=== PATIENT | male | born 1980 ===

== ENCOUNTER 2017-02-11 07:21 | Emergency (ER) | payer OTHER ==
[2017-02-11 07:30] VITALS: BP 148/101; PULSE 106; RESP 18; TEMP 98.2; O2SAT 95
--- NOTE | 2017-02-11 07:44 | C.PDOC ---
History Of Present Illness 37-year-old male, presents to the emergency department requesting substance abuse. Patient states he has a history of Heroin abuse. States he "sniffs" about 20 bags a day x10 years. Last use was three hours ago. Denies any other associated symptoms. No HI/SI. Time Seen by Provider: 02/11/17 07:40 Chief Complaint (Nursing): Substance Abuse History Per: Patient History/Exam Limitations: no limitations Past Medical History Reviewed: Historical Data, Nursing Documentation, Vital Signs Vital Signs: Last Vital Signs Temp 98.2 F 02/11/17 07:25 Pulse 106 H 02/11/17 07:25 Resp 18 02/11/17 07:25 BP 148/101 H 02/11/17 07:25 Pulse Ox 95 02/11/17 10:01 Family History: States: Unknown Family Hx - Social History Hx Tobacco Use: No Hx Alcohol Use: No Hx Substance Use: Yes - Immunization History Hx Tetanus Toxoid Vaccination: No Hx Influenza Vaccination: No Hx Pneumococcal Vaccination: No Review Of Systems Except As Marked, All Systems Reviewed And Found Negative. Constitutional: Negative for: Fever, Chills Cardiovascular: Negative for: Chest Pain Gastrointestinal: Negative for: Nausea, Vomiting Skin: Negative for: Rash Neurological: Negative for: Weakness, Numbness Physical Exam - Physical Exam Appears: Non-toxic, No Acute Distress Skin: Warm, Dry, No Rash Head: Atraumatic, Normacephalic Eye(s): bilateral: Normal Inspection, PERRL, EOMI Nose: Normal Oral Mucosa: Moist Lips: Normal Appearing Neck: Normal ROM Respiratory: No Accessory Muscle Use Extremity: Normal ROM Neurological/Psych: Oriented x3, Normal Speech ED Course And Treatment O2 Sat by Pulse Oximetry: 95 Progress Note: There are no detox beds available at this time. Patient will be discharged w/ instructions to follow-up w/ detox co-ordinator, and given information about the pre screening process. All questions answered. - Physician Consult Information Time Consulting Physician Contacted: 07:41 Outcome Of Conversation: d/w crisis no detox beds avail Disposition Counseled Patient/Family Regarding: Diagnosis, Need For Followup - Disposition Referrals: [facility] [Outside] [facility] [Outside] [facility] [Provider Group] [facility]RE[facility] [Other] Disposition: HOME/ ROUTINE Disposition Time: 07:40 Condition: GOOD Instructions: Polysubstance Abuse (ED) - Clinical Impression Clinical Impression: Polysubstance abuse - Scribe Statement The provider has reviewed the documentation as recorded by the Florian Felipe Provider Attestation: All medical record entries made by the Florian were at my direction and personally dictated by me. I have reviewed the chart and agree that the record accurately reflects my personal performance of the history, physical exam, medical decision making, and the department course for this patient. I have also personally directed, reviewed, and agree with the discharge instructions and disposition.
== END 2017-02-11 08:01 | disposition home or self-care (01) ==
LOC: C.ER 07:21
DX: F19.10 Other psychoactive substance abuse, uncomplicated (principal)

== ENCOUNTER 2017-05-30 12:47 | Emergency (ER) | payer OTHER ==
[2017-05-30] MEDS ORDERED: Sodium Chloride 0.9% 1,000 ML IV ONE (13:16)
[2017-05-30 13:35] LABS: BASO # 0.1 K/uL (0.0-0.2); BASO % 0.5 % (0.0-2.0); EOS # 0.1 K/uL (0.0-0.7); EOS % 1.5 % (0.0-4.0); HEMATOCRIT 40.1 % (35.0-51.0); LYMPH # 2.8 K/uL (1.0-4.3); LYMPH % 28.2 % (20.0-40.0); MEAN CELL VOLUME 83.6 fL (80.0-94.0); MEAN CORPUSCULAR HEMOGLOBIN 27.9 pg (27.0-31.0); MEAN CORPUSCULAR HGB CONC 33.4 g/dL (33.0-37.0); MEAN PLATELET VOLUME 6.5 fL (7.2-11.7); MONO # 0.5 K/uL (0.0-0.8); RED CELL DISTRIBUTION WIDTH 14.2 % (11.5-14.5)
[2017-05-30] MEDS ORDERED: Sodium Chloride 0.9% 1,000 ML ONE (13:38)
[2017-05-30 13:43] LABS: CHLORIDE 96 mmol/L (98-107); POTASSIUM 3.2 mmol/L (3.6-5.2); SODIUM 139 mmol/L (132-148)
[2017-05-30 13:45] LABS: GFR AFRICAN-AMERICAN > 60
[2017-05-30 13:46] LABS: ALB/GLOB RATIO 1.4 (1.0-2.1); ALKALINE PHOSPHATASE 70 U/L (38-126); ALT/SGPT 37 U/L (21-72); AST/SGOT 19 U/L (17-59); BILIRUBIN,TOTAL 0.8 mg/dL (0.2-1.3); BLOOD UREA NITROGEN 12 mg/dL (9-20); CALCIUM 8.8 mg/dl (8.6-10.4); CARBON DIOXIDE 28 mmol/L (22-30); GLUCOSE,RANDOM 124 mg/dL (75-110); TOTAL PROTEIN 6.8 g/dL (6.3-8.3)
--- NOTE | 2017-05-30 14:58 | C.PDOC ---
- HPI Time Seen by Provider: 05/30/17 13:09 Chief Complaint (Nursing): Trauma History Per: Patient Injury Occurred (Timing): Days Ago: (1) Description Of Injury (Context): Hit with a pole while at work Location Of Injury: Right: Abdomen Severity: Moderate Additional History Per: Prior Records Past Medical History Reviewed: Historical Data, Nursing Documentation, Vital Signs Vital Signs: Last Vital Signs Temp 98.1 F 05/30/17 13:05 Pulse 85 05/30/17 13:05 Resp 16 05/30/17 13:05 BP 119/75 05/30/17 13:05 Pulse Ox 94 L 05/30/17 14:59 - Medical History PMH: No Chronic Diseases Surgical History: No Surg Hx Family History: States: Unknown Family Hx - Social History Hx Tobacco Use: No Hx Alcohol Use: No Hx Substance Use: Yes - Immunization History Hx Tetanus Toxoid Vaccination: No Hx Influenza Vaccination: No Hx Pneumococcal Vaccination: No Review Of Systems Except As Marked, All Systems Reviewed And Found Negative. Constitutional: Negative for: Fever, Weakness Cardiovascular: Negative for: Chest Pain, Light Headedness Respiratory: Negative for: Shortness of Breath Gastrointestinal: Positive for: Abdominal Pain. Negative for: Vomiting, Hematochezia, Hematemesis Genitourinary: Positive for: Other (dark urine?) Musculoskeletal: Negative for: Neck Pain, Back Pain, Leg Pain Skin: Negative for: Rash Neurological: Negative for: Weakness, Numbness, Seizures, Altered Mental Status Physical Exam - Physical Exam Appears: Non-toxic, No Acute Distress Skin: Normal Color, Warm, Dry, No Rash Head: Atraumatic, Normacephalic Eye(s): bilateral: Normal Inspection, PERRL, EOMI Neck: Normal ROM, No Midline Cervical Tenderness, No Step Off Deformity, Supple Chest: Symmetrical, No Deformity Cardiovascular: Rhythm Regular Respiratory: Normal Breath Sounds, No Accessory Muscle Use Gastrointestinal/Abdominal: Soft, Tenderness (right side of abdomen) Back: Normal Inspection, No CVA Tenderness, No Vertebral Tenderness Extremity: Normal ROM, No Deformity Neurological/Psych: Oriented x3, Normal Motor, Normal Sensation ED Course And Treatment - Laboratory Results Result Diagrams: 05/30/17 13:30 05/30/17 13:30 O2 Sat by Pulse Oximetry: 94 Progress Note: I ordered labs, U/A, and CT scan of abdomen/pelvis. Pt did not provide a urine sample for us to test after multiple requests for our end. He also states that he must leave right now even thought the CT scan was not performed yet. He insists on leaving AMA even after explaining to him that he may have suppered serious liver, kidney or other injury. Disposition Counseled Patient/Family Regarding: Need For Followup - Disposition Referrals: Mone Monreal MD [Staff Provider] - Disposition: AGAINST MEDICAL ADVICE Disposition Time: 14:59 Condition: UNKNOWN Additional Instructions: Follow up with your doctor as soon as possible. Return to the ER if you change your mind, develop worsening of symptoms or if you have any other concerns. Instructions: Against Medical Advice (ED) Forms: General Discharge Instructions - Clinical Impression Clinical Impression: Blunt abdominal trauma, Left against medical advice
[2017-05-30 15:07] VITALS: BP 132/84; PULSE 86; RESP 18; TEMP 98.6
[2017-05-30 15:08] VITALS: O2SAT 94
== END 2017-05-30 15:06 | disposition left against medical advice (07) ==
LOC: C.ER 12:47
DX: S39.91XA Unspecified injury of abdomen, initial encounter (principal); W22.8XXA Striking against or struck by other objects, initial encounter; Y92.89 Other specified places as the place of occurrence of the external cause; Y99.0 Civilian activity done for income or pay

== ENCOUNTER 2017-09-18 11:32 | Emergency (ER) | payer OTHER ==
[2017-09-18 12:17] VITALS: RESP 18; TEMP 97.7
[2017-09-18 14:59] LABS: BASO % 0.3 % (0.0-2.0); EOS # 0.3 K/uL (0.0-0.7); EOS % 3.2 % (0.0-4.0); HEMATOCRIT 42.1 % (35.0-51.0); LYMPH # 2.4 K/uL (1.0-4.3); LYMPH % 26.7 % (20.0-40.0); MEAN CELL VOLUME 86.1 fL (80.0-94.0); MEAN CORPUSCULAR HEMOGLOBIN 28.6 pg (27.0-31.0); MEAN CORPUSCULAR HGB CONC 33.2 g/dL (33.0-37.0); MEAN PLATELET VOLUME 7.1 fL (7.2-11.7); MONO # 0.5 K/uL (0.0-0.8); MONO % 6.2 % (0.0-10.0); NRBC % 0.1 % (0.0-2.0); RED CELL DISTRIBUTION WIDTH 14.9 % (11.5-14.5); WHITE BLOOD COUNT 8.9 K/uL (4.8-10.8)
[2017-09-18 15:08] LABS: CHLORIDE 94 mmol/L (98-107)
[2017-09-18 15:09] LABS: POTASSIUM 3.9 mmol/L (3.6-5.2); SODIUM 133 mmol/L (132-148)
[2017-09-18 15:11] LABS: ALB/GLOB RATIO 1.7 (1.0-2.1); AST/SGOT 32 U/L (17-59); BILIRUBIN,TOTAL 0.8 mg/dL (0.2-1.3); CARBON DIOXIDE 32 mmol/L (22-30); GFR AFRICAN-AMERICAN > 60; TOTAL PROTEIN 6.7 g/dL (6.3-8.3)
[2017-09-18 15:12] LABS: ALKALINE PHOSPHATASE 59 U/L (38-126); ALT/SGPT 46 U/L (21-72); BLOOD UREA NITROGEN 9 mg/dL (9-20); CALCIUM 8.7 mg/dl (8.6-10.4); GLUCOSE,RANDOM 82 mg/dL (75-110)
[2017-09-18] MEDS ORDERED: Belladonna-Phenobarbital PO STA (15:36)
[2017-09-18] MEDS ORDERED: Pantoprazole 40 mg EC Tab PO STA (15:44)
[2017-09-18] MEDS ORDERED: Belladonna-Phenobarbital ONE (15:48)
[2017-09-18] MEDS ORDERED: Pantoprazole 40 mg EC Tab PO ONE (15:49)
[2017-09-18 15:55] LABS: RBC URINE < 1 /hpf (0-3); URINE BILIRUBIN NEGATIVE (NEGATIVE); URINE BLOOD NEGATIVE (NEGATIVE); URINE COLOR Yellow (YELLOW); URINE GLUCOSE (UA) NORMAL (Normal); URINE KETONE NEGATIVE (NEGATIVE); URINE LEUKOCYTE ESTERASE NEG Leu/uL (Negative); URINE PROTEIN NEGATIVE (NEGATIVE); URINE UROBILINOGEN NORMAL mg/dL (0.2-1.0); WBC URINE < 1 /hpf (0-5)
--- NOTE | 2017-09-18 16:10 | C.PDOC ---
History Of Present Illness 37 year old male presents to the ED with complaints of upper abdominal burning sensation for three days with associated hiccups. Patient states after eating pain is worsened and feels a residual burning. Patient has had similar episodes in the past and denies nausea, vomiting, fever, chest pain, shortness of breath , or other complaints at this time. Time Seen by Provider: 09/18/17 14:15 Chief Complaint (Nursing): Abdominal Pain History Per: Patient History/Exam Limitations: no limitations Onset/Duration Of Symptoms: Days (3 days ) Current Symptoms Are (Timing): Still Present Location Of Pain/Discomfort: Epigastric Radiation Of Pain To:: None Quality Of Discomfort: Burning Associated Symptoms: denies: Fever, Chills, Nausea, Vomiting, Diarrhea Exacerbating Factors: Food (worse after eating) Alleviating Factors: None Recent travel outside of the [place]: No Past Medical History Reviewed: Historical Data, Nursing Documentation, Vital Signs Vital Signs: Last Vital Signs Temp 97.7 F 09/18/17 12:14 Pulse 90 09/18/17 12:14 Resp 18 09/18/17 12:14 BP 116/73 09/18/17 12:14 Pulse Ox 97 09/18/17 16:14 Family History: States: Unknown Family Hx - Social History Hx Tobacco Use: No Hx Alcohol Use: No Hx Substance Use: Yes - Immunization History Hx Tetanus Toxoid Vaccination: No Hx Influenza Vaccination: No Hx Pneumococcal Vaccination: No Review Of Systems Constitutional: Negative for: Fever, Chills Cardiovascular: Negative for: Chest Pain, Palpitations Respiratory: Negative for: Cough, Shortness of Breath Gastrointestinal: Positive for: Abdominal Pain. Negative for: Nausea, Vomiting , Diarrhea Physical Exam - Physical Exam Appears: Non-toxic, No Acute Distress Skin: Warm, Dry, No Rash Head: Atraumatic, Normacephalic, No Tenderness Eye(s): bilateral: Normal Inspection, PERRL, EOMI Oral Mucosa: Moist Neck: Supple Chest: Symmetrical, No Deformity Cardiovascular: Rhythm Regular, No Murmur Respiratory: No Rales, No Rhonchi, No Wheezing, Other (clear to auscultation bilaterally ) Gastrointestinal/Abdominal: Soft, Tenderness (mild epigastric tenderness ), No Distention, No Guarding, No Rebound Extremity: Normal ROM, No Tenderness Neurological/Psych: Oriented x3 ED Course And Treatment - Laboratory Results Result Diagrams: 09/18/17 14:53 09/18/17 14:53 O2 Sat by Pulse Oximetry: 97 (RA) Progress Note: Blood work and labs were ordered. Patient was given Pepcid, Protonix, and . Reevaluation Time: 16:26 Reassessment Condition: Improved Disposition Counseled Patient/Family Regarding: Studies Performed, Diagnosis, Need For Followup, Rx Given - Disposition Referrals: [facility] [Outside] [facility] [Outside] Disposition: HOME/ ROUTINE Disposition Time: 16:26 Condition: IMPROVED Prescriptions: Famotidine [Pepcid AC] 10 mg PO QN #30 tablet Omeprazole Magnesium [Prilosec Otc] 20 mg PO QPM #30 tab Ondansetron [Zofran Odt] 4 mg PO TID PRN #9 odt PRN Reason: Nausea/Vomiting Instructions: Gastritis (ED), Diet for Ulcers and Gastritis (ED) Forms: [email or web address] (Uzbek) - Clinical Impression Clinical Impression: Abdominal pain, Nausea - Scribe Statement The provider has reviewed the documentation as recorded by the Scribivory Peralta All medical record entries made by the Thienibivory were at my direction and personally dictated by me. I have reviewed the chart and agree that the record accurately reflects my personal performance of the history, physical exam, medical decision making, and the department course for this patient. I have also personally directed, reviewed, and agree with the discharge instructions and disposition.
--- NOTE | 2017-09-18 16:26 | C.PDOC ---
Time Seen by Provider: 09/18/17 14:15 Chief Complaint (Nursing): Abdominal Pain Past Medical History Vital Signs: Last Vital Signs Temp 97.7 F 09/18/17 12:14 Pulse 90 09/18/17 12:14 Resp 18 09/18/17 12:14 BP 116/73 09/18/17 12:14 Pulse Ox 97 09/18/17 12:14 - Medical History PMH: Denies: Diabetes, Hepatitis, HIV, HTN, Seizures, Sexually Transmitted Disease Family History: States: Unknown Family Hx - Social History Hx Tobacco Use: No Hx Alcohol Use: No Hx Substance Use: Yes - Immunization History Hx Tetanus Toxoid Vaccination: No Hx Influenza Vaccination: No Hx Pneumococcal Vaccination: No ED Course And Treatment - Laboratory Results Result Diagrams: 09/18/17 14:53 09/18/17 14:53 O2 Sat by Pulse Oximetry: 97 Disposition - Disposition
[2017-09-18 16:37] VITALS: BP 112/68; PULSE 91; O2SAT 98
== END 2017-09-18 16:36 | disposition home or self-care (01) ==
LOC: C.ER 11:32
DX: R11.0 Nausea (principal); R10.9 Unspecified abdominal pain